=== PATIENT | female | born 1985 | race Two or more races ===

== ENCOUNTER 2018-02-14 08:38 | Outpatient (CLI) | payer BC | END 2018-02-14 10:54 | disposition home or self-care (01) | LOC: OBT 08:38 → L-D 08:40 → OBT 10:54 | DX: O24.419 Gestational diabetes mellitus in pregnancy, unspecified control (principal); Z3A.34 34 weeks gestation of pregnancy | CPT/HCPCS: 76818; 82962 ==

== ENCOUNTER 2018-03-20 08:23 | Inpatient (IN) | payer BC ==
[2018-03-20] MEDS ORDERED: LIDOCAINE 1% (MPF) 30 ML INJ INJ (10:30)
[2018-03-20] MEDS ORDERED: MISOPROSTOL 200 MCG TAB PR (10:30)
[2018-03-20] MEDS ORDERED: METHYLERGONOVINE 0.2 MG INJ IM (10:30)
[2018-03-20] MEDS ORDERED: CARBOPROST 250 MCG INJ IM (10:30)
[2018-03-20] MEDS ORDERED: OXYTOCIN 30 UNITS/LR 500 ML IV (10:30)
[2018-03-20] MEDS: DINOPROSTONE 10 MG VAG SUPP VAG (11:36)
[2018-03-20] MEDS: LACTATED RINGER'S 1,000 ML IV ×2 (11:37→16:10)
[2018-03-20 12:23] LABS: ADD MAN DIFF? NO
[2018-03-20 12:27] LABS: BASOPHIL # 0.1 10^3/ul (0.0-0.1); BASOPHILS % 0.6 % (0.0-2.0); EOSINOPHILS # 0.1 10^3/ul (0.0-0.5); EOSINOPHILS % 1.1 % (0.0-7.0); HEMATOCRIT 37.7 % (37.0-47.0); HEMOGLOBIN 13.4 g/dl (12.0-16.0); LYMPHOCYTES # 2.4 10^3/ul (0.8-2.9); LYMPHOCYTES % 26.2 % (15.0-51.0); MEAN CORPUSCULAR HEMOGLOBIN 30.7 pg (29.0-33.0); MEAN CORPUSCULAR HGB CONC 35.5 g/dl (32.0-37.0); MEAN CORPUSCULAR VOLUME 86.3 fl (82.0-101.0); MEAN PLATELET VOLUME 12.2 fl (7.4-10.4); MONOCYTE # 0.6 10^3/ul (0.3-0.9); MONOCYTES % 6.7 % (0.0-11.0); NEUTROPHIL # 5.9 10^3/ul (1.6-7.5); NEUTROPHILS % 64.3 % (39.0-77.0); PLATELET COUNT 271 10^3/UL (140-415); RED BLOOD COUNT 4.37 10^6/ul (4.20-5.40); RED CELL DISTRIBUTION WIDTH 14.5 % (11.5-14.5)
[2018-03-20 12:27] LABS: WHITE BLOOD COUNT 9.1 10^3/ul (4.8-10.8)
[2018-03-20 12:32] LABS: INR 0.84; PROTIME 11.6 Sec (11.9-14.9); PT RATIO 0.9
[2018-03-20 12:33] LABS: PARTIAL THROMBOPLASTIN TIME 32.3 Sec (25.0-35.0)
[2018-03-20 13:04] LABS: HEPATITIS B SURFACE ANTIGEN NEGATIVE (NEGATIVE)
[2018-03-20 18:37] LABS: RAPID PLASMA REAGIN NONREACTIVE (NR)
[2018-03-21] MEDS: LACTATED RINGER'S 1,000 ML IV ×3 (00:10→12:01)
[2018-03-21] MEDS ORDERED: FENTAnyl 2MCG/ML-ROPIV 0.2% 100 ML (02:58)
[2018-03-21] MEDS ORDERED: NALOXONE (0.4 MG/ML) INJ IV (03:00)
[2018-03-21] MEDS ORDERED: DIPHENHYDRAMINE 50 MG INJ IV (03:00)
[2018-03-21] MEDS ORDERED: ONDANSETRON 4 MG INJ IV (03:00)
[2018-03-21] MEDS: FENTAnyl 2MCG/ML-ROPIV 0.2% 100 ML BAG EPI ×2 (03:45→11:42)
[2018-03-21] MEDS: DEXTROSE 5%-LR 1,000 ML IV ×2 (04:05→15:32)
[2018-03-21] MEDS: OXYTOCIN 30 UNITS/LR 500 ML IV ×3 (06:47→19:41)
[2018-03-21] MEDS ORDERED: AMPICILLIN 2 GM/NS (PMX) 100 ML (16:47)
[2018-03-21] MEDS: ACETAMINOPHEN 325 MG TAB PO (16:54)
[2018-03-21] MEDS: AMPICILLIN 2 GM/NS (PMX) 100 ML IVPB (16:55)
[2018-03-21] MEDS: AMPICILLIN 1 GM/NS (PMX) 50 ML IVPB (21:36)
[2018-03-21] MEDS ORDERED: CARBOPROST 250 MCG INJ IM (22:30)
[2018-03-21] MEDS ORDERED: OXYTOCIN 30 UNITS/LR 500 ML IV (22:30)
[2018-03-21] MEDS ORDERED: ZOLPIDEM 5 MG TAB PO (22:30)
[2018-03-21] MEDS ORDERED: OXYCODONE/ASPIRIN (4.88/325) TAB PO ×2 (22:30)
[2018-03-21] MEDS ORDERED: WITCH HAZEL/GLYCERIN PAD PR (22:30)
[2018-03-21] MEDS ORDERED: BENZOCAINE 20% 56 ML SPRAY TOP (22:30)
[2018-03-21] MEDS ORDERED: METHYLERGONOVINE 0.2 MG INJ IM (22:30)
[2018-03-21] MEDS ORDERED: MISOPROSTOL 200 MCG TAB PR (22:30)
[2018-03-21] MEDS: IBUPROFEN 600 MG TAB PO (23:47)
[2018-03-21] MEDS: LANOLIN 7 GM TUBE TOP (23:48)
[2018-03-22] MEDS: IBUPROFEN 600 MG TAB PO ×3 (05:48→17:48)
[2018-03-22 08:32] LABS: ADD MAN DIFF? NO
[2018-03-22 08:38] LABS: WHITE BLOOD COUNT 15.1 10^3/ul (4.8-10.8)
[2018-03-22 08:38] LABS: BASOPHIL # 0.1 10^3/ul (0.0-0.1); BASOPHILS % 0.4 % (0.0-2.0); EOSINOPHILS # 0.2 10^3/ul (0.0-0.5); EOSINOPHILS % 1.2 % (0.0-7.0); HEMATOCRIT 32.7 % (37.0-47.0); HEMOGLOBIN 11.5 g/dl (12.0-16.0); LYMPHOCYTES # 3.3 10^3/ul (0.8-2.9); LYMPHOCYTES % 21.7 % (15.0-51.0); MEAN CORPUSCULAR HEMOGLOBIN 30.6 pg (29.0-33.0); MEAN CORPUSCULAR HGB CONC 35.2 g/dl (32.0-37.0); MEAN PLATELET VOLUME 11.6 fl (7.4-10.4); MONOCYTE # 1.1 10^3/ul (0.3-0.9); NEUTROPHIL # 10.5 10^3/ul (1.6-7.5); NEUTROPHILS % 69.2 % (39.0-77.0); PLATELET COUNT 223 10^3/UL (140-415); RED BLOOD COUNT 3.76 10^6/ul (4.20-5.40); RED CELL DISTRIBUTION WIDTH 14.5 % (11.5-14.5)
[2018-03-22] MEDS: SENNA/DOCUSATE NA (8.6MG/50MG) TAB PO ×2 (09:20→21:00)
[2018-03-23] MEDS: IBUPROFEN 600 MG TAB PO ×3 (00:01→11:48)
[2018-03-23 09:13] LABS: ADD MAN DIFF? NO
[2018-03-23 09:22] LABS: BASOPHILS % 0.4 % (0.0-2.0); EOSINOPHILS # 0.3 10^3/ul (0.0-0.5); HEMATOCRIT 30.8 % (37.0-47.0); HEMOGLOBIN 10.9 g/dl (12.0-16.0); LYMPHOCYTES # 2.5 10^3/ul (0.8-2.9); LYMPHOCYTES % 26.1 % (15.0-51.0); MEAN CORPUSCULAR HEMOGLOBIN 30.8 pg (29.0-33.0); MEAN CORPUSCULAR HGB CONC 35.4 g/dl (32.0-37.0); MEAN PLATELET VOLUME 11.9 fl (7.4-10.4); MONOCYTE # 0.6 10^3/ul (0.3-0.9); MONOCYTES % 5.7 % (0.0-11.0); NEUTROPHIL # 6.2 10^3/ul (1.6-7.5); NEUTROPHILS % 63.9 % (39.0-77.0); PLATELET COUNT 235 10^3/UL (140-415); RED BLOOD COUNT 3.54 10^6/ul (4.20-5.40); RED CELL DISTRIBUTION WIDTH 14.7 % (11.5-14.5)
[2018-03-23 09:22] LABS: WHITE BLOOD COUNT 9.7 10^3/ul (4.8-10.8)
[2018-03-23] MEDS: SENNA/DOCUSATE NA (8.6MG/50MG) TAB PO (09:41)
[2018-03-23] MEDS: DIPHTH/TET/ACEL PERTUSS (ADULT) 0.5 ML VIAL IM* (14:26)
== END 2018-03-23 16:45 | disposition home or self-care (01) | DRG 775 ==
LOC: L-D 08:23 → PP1 03-21 21:00
PROVIDERS: Obstetrics & Gynecology
PROC: 3E0P7VZ Introduction of Hormone into Female Reproductive, Via Natural or Artificial Opening (ICD-10-PCS; 2018-03-20)
PROC: 10E0XZZ Delivery of Products of Conception, External Approach (ICD-10-PCS; principal; 2018-03-21)
DX: O24.420 Gestational diabetes mellitus in childbirth, diet controlled (principal); Z3A.39 39 weeks gestation of pregnancy; Z37.0 Single live birth
CPT/HCPCS: 62319; 76815; 82962; 85025; 85610; 85730; 86592; 86850; 86900; 86901; 87340; 90715; 99464